=== PATIENT | male | born 1995 | race African-American/Black ===

== ENCOUNTER 2021-09-04 12:02 | Emergency (ER) | payer MEDICARE, MEDICAID ==
[~2021-09-04] VITALS: Ht 160 cm; Wt 64.0 kg
[2021-09-04 15:59] VITALS: BP 137/73
== END 2021-09-04 16:01 | disposition home or self-care (01) ==
LOC: ER 12:02
DX: S09.8XXA Other specified injuries of head, initial encounter (principal); Q01.9 Encephalocele, unspecified; G93.89 Other specified disorders of brain; F84.0 Autistic disorder; H54.7 Unspecified visual loss; W22.01XA Walked into wall, initial encounter; Y93.89 Activity, other specified; Y92.9 Unspecified place or not applicable
CPT/HCPCS: 99284

== ENCOUNTER 2023-08-23 16:04 | Emergency (ER) | payer BC, MEDICARE ==
[~2023-08-23] VITALS: Ht 160 cm; Wt 59.0 kg
[2023-08-23] MEDS ORDERED: KETOROLAC 30MG/ML VIAL IV STA (16:07)
[2023-08-23] MEDS: TETANUS, DIPHTHERIA, PERTUSSIS VAC/PF 0.5ML (>10YR OLD) IM ONE (16:47)
[2023-08-23] MEDS: HALOPERIDOL LACTATE 5MG/ML VIAL IM ONE (17:24)
[2023-08-23] MEDS: ZIPRASIDONE MESYLATE 20MG/VIAL IM ONE (18:15)
[2023-08-23] MEDS: LORAZEPAM 2MG/ML INJ IM ONE (19:49)
[2023-08-23] MEDS ORDERED: DIPHENHYDRAMINE 50MG/ML VIAL IM STA (20:32)
[2023-08-23] MEDS ORDERED: OLANZAPINE 10 MG/VIAL IM STA (20:32)
[2023-08-23] MEDS: OLANZAPINE 10 MG/VIAL IM NR (22:35)
[2023-08-23 22:36] VITALS: O2SAT 98
[2023-08-23] MEDS: MIDAZOLAM HCL 2 MG/2 ML VIAL IM ONE (22:36)
[2023-08-23] MEDS ORDERED: MIDAZOLAM HCL 2 MG/2 ML VIAL IM NR (22:45)
[2023-08-23] MEDS ORDERED: DIPHENHYDRAMINE 50MG/ML VIAL IM NR (22:45)
[2023-08-23] MEDS: KETAMINE HCL 50 MG/ML 10ML IM ONE (23:32)
[2023-08-24] MEDS: CEFAZOLIN 1000MG PREMIX 50 ML IV ONE (00:41)
[2023-08-24] MEDS ORDERED: NAPR275T96 MT (01:21)
[2023-08-24] MEDS ORDERED: AMOX1TAB16 MT (01:21)
[2023-08-24] MEDS ORDERED: GUAI600T26 MT (01:21)
[2023-08-24] MEDS ORDERED: ACET-2708 MT (01:21)
[2023-08-24 01:47] VITALS: BP 108/70; PULSE 87; RESP 15; TEMP 98.1
== END 2023-08-24 01:55 | disposition home or self-care (01) ==
LOC: ER 16:04
DX: S02.40CA Maxillary fracture, right side, initial encounter for closed fracture (principal); S00.83XA Contusion of other part of head, initial encounter; Z79.899 Other long term (current) drug therapy; Y08.89XA Assault by other specified means, initial encounter; Y93.89 Activity, other specified; Y92.89 Other specified places as the place of occurrence of the external cause; Y99.8 Other external cause status
CPT/HCPCS: 99285; 90715; 90471; 70450; 96365; 70486; 72125; 96372; J3490 ×2; J0690; J1630; J1885; J2060; J2250; J3486